=== PATIENT | male | born 1975 | race Caucasian/White ===

== ENCOUNTER 2019-01-15 09:27 | Inpatient (IN) | payer OTHER ==
[~2019-01-15] VITALS: Ht 170.2 cm; Wt 122.5 kg
[2019-01-15 12:39] VITALS: BP 141/96; PULSE 94; RESP 18
[2019-01-15 12:45] VITALS: Ht 170.2 cm; Wt 122.5 kg
--- NOTE | 2019-01-15 13:24 | HP ---
Date/Time of Note Date/Time of Note DATE: 01/15/19 TIME: 13:11 Assessment/Plan VTE Prophylaxis Pharmacological prophylaxis: LMWH Assessment/Plan Assessment/Plan 43 yo obese man, smoker, presents with likely pancreatitis #Acute abdominal pain #Nausea and vomiting - CT shows inflammatory changes of pancreas. Lipase 174, amylase 36. - Differential includes early pancreatitis, peptic ulcer, acute gastroenteritis, ileus. - For suspected pancreatitis will make NPO and aggressive IV fluids; repeat lipase in AM. EtOH negative, will check triglycerides and RUQ US (CT didn't report on gallbladder) - Protonix BID - Tylenol and norco prn pain. #Smoker - Encouraged cessation - Offered nicotine patch, patient refused. DVT: LMWH GI: PPI HPI/ROS Admit Date/Time Admit Date/Time Jan 15, 2019 at 12:20 Hx of Present Illness Mr. Campbell is a pleasant obese man transferred here from [facility] for pancreatitis. He was in his usual state of health until Sunday evening. He had eaten 2 [id number] and lots of [employer] garlic bread. Soon afterwards he developed LUQ cramping abdominal pain "like when you step out of the shower and are hit with cold air". This was associated with fever and chills. He took ibuprofen 500mg, Nyquil, Zantac, pepto bismol, then a bottle of Pedialyte. Soon after drinking the Pedialyte he vomited 4 times, nonbloody nonbilious; just the pedialyte. Then he presented to the ED. Of note, he drinks heavily on the weekends and drank a 12 pack of beer on S unday. He said he felt fine after this and was asymptomatic until Sunday night. He reports constipation, last BM 2 days ago. Early Sunday morning he presented to the [place] ED. He was hypertensive to 187/96, otherwise vitals unremarkable. Labs were notable for WBC 18.4, Hgb 17.2, platelets 130. Na 126, K 3.3, glucose 291. Lipase was 174, amylase 36. EtOH negative. CT was done showing fatty hepatomegaly and inflammatory change around the pancreas. He was bolused fluids and transfered here. ROS He denies weight loss, anorexia, night sweats, headache, vision changes, dysphagia, dysarthria, sore throat, diarrhea, chest pain/pressure/palpitations, cough, dysuria, hematuria, melena, hematochezia, hematemesis. PMH/Family/Social Past Medical History Denies Coded Allergies: No Known Allergy (Unverified , 01/15/19) Past Surgical History Appendectomy as a child Social History Alcohol Use: heavy (Drinks 12 pack of beer every weekend) Smoking Status: Current every day smoker (1.5 packs per day) Drug Use: none Exam/Review of Systems Vital Signs Vitals Vital Signs Date Temp Pulse Resp B/P (MAP) Pulse Ox O2 O2 Flow FiO2 Time Delivery Rate 01/15/19 97.8 94 18 141/96 96 Room Air 12:39 (111) Exam Exam Gen: Obese man lying in bed uncomfortable appearing. Eyes: PERRL, no icterus HEENT: Moist mucous membranes, clear oropharynx Neck: Obese, no lymphadenopathy Card: Regular rate and rhythm, no murmurs Pulm: Clear to auscultation bilaterally. Abd: Diffusely tender to deep palpation, most at LUQ. Obese, soft. No rebound tenderness. No palpable hepatomegaly. Too tender to palpate spleen. Negative Reece's sign. Ext: No cyanosis/clubbing/edema Skin: warm dry well perfused SHILPA BAUER MD Jan 15, 2019 13:22
[2019-01-15] MEDS ORDERED: ACETAMINOPHEN 325 MG TAB PO PRN (13:30)
[2019-01-15] MEDS ORDERED: NACL 0.9% 3 ML SYG IV SCH (13:30)
[2019-01-15] MEDS ORDERED: ONDANSETRON 4 MG INJ IV PRN (13:30)
[2019-01-15] MEDS: HYDROCODONE/APAP (5/325) TAB PO PRN ×2 (13:49→20:01)
[2019-01-15] MEDS: SENNA TAB PO SCH ×2 (15:09→20:01)
[2019-01-15] MEDS: NS + KCL 20 MEQ 1,000 ML IV SCH ×2 (15:09→21:10)
[2019-01-15 20:00] VITALS: BP 129/89; PULSE 99; RESP 19
[2019-01-16] MEDS: NS + KCL 20 MEQ 1,000 ML IV SCH ×3 (00:50→09:02)
[2019-01-16] MEDS: HYDROCODONE/APAP (5/325) TAB PO PRN ×4 (01:54→21:08)
[2019-01-16 02:00] VITALS: BP 160/86; PULSE 90; RESP 18
[2019-01-16] MEDS: PANTOPRAZOLE 40 MG INJ IV SCH (05:59)
[2019-01-16 06:40] VITALS: BP 157/95; PULSE 88
[2019-01-16 07:53] VITALS: BP 159/97; PULSE 91; RESP 18
[2019-01-16] MEDS: SENNA TAB PO SCH ×2 (08:26→21:08)
[2019-01-16] MEDS: ENOXAPARIN 40 MG/0.4 ML SYG SC SCH (08:34)
--- NOTE | 2019-01-16 12:55 | PN ---
Date/Time of Note Date/Time of Note DATE: 01/16/19 TIME: 12:51 Assessment/Plan VTE Prophylaxis Risk score (from Nsg)>0 risk: 1 SCD applied (from Nsg): Yes Pharmacological prophylaxis: LMWH Lines/Catheters IV Catheter Type (from Nrsg): Peripheral IV Urinary Cath still in place: No Assessment/Plan Assessment/Plan 43 yo obese man, smoker, presents with pancreatitis #Acute abdominal pain #Nausea and vomiting - CT shows inflammatory changes of pancreas. Lipase 174 -> 492 - Differential includes early pancreatitis, peptic ulcer, acute gastroenteritis, ileus. - Abdominal pain improving, patient hungry. Will start clear liquids. - Etiology of pancreatitis may be alcohol binge. No gallstones on US or CT, triglycerides only slightly elevated. - Protonix BID - Tylenol and norco prn pain. #Smoker - Encouraged cessation - Offered nicotine patch, patient refused. DVT: LMWH GI: PPI Result Diagram: 01/16/19 0459 01/16/19 0458 Subjective 24 Hr Interval Summary Free Text/Dictation Patient reports abdominal pain improving. Nausea has resolved. Feeling hungry. Ambulating to bathroom. Exam/Review of Systems Exam Vitals Vital Signs Date Temp Pulse Resp B/P (MAP) Pulse Ox O2 O2 Flow FiO2 Time Delivery Rate 01/16/19 98.9 91 18 159/97 94 Room Air 07:53 (117) Intake and Output 01/15/19 01/15/19 01/16/19 1515:00 23:00 07:00 IntakeIntake Total 450 ml 1150 ml OutputOutput Total 500 ml BalanceBalance 450 ml 650 ml Exam Gen: Obese man lying in bed well appearing Eyes: PERRL, no icterus HEENT: Moist mucous membranes, clear oropharynx Neck: Obese, no lymphadenopathy Card: Regular rate and rhythm, no murmurs Pulm: Clear to auscultation bilaterally. Abd: Diffusely tender to deep palpation, most at LUQ. Obese, soft. No rebound tenderness. No palpable hepatomegaly. Too tender to palpate spleen. Negative Reece's sign. Ext: No cyanosis/clubbing/edema Skin: warm dry well perfused Results Results 24hrs Laboratory Tests Test 01/16/19 04:58 01/16/19 04:59 Sodium Level 134 L Potassium Level 4.7 Chloride Level 98 Carbon Dioxide Level 28 Anion Gap 8 Blood Urea Nitrogen 9 Creatinine 0.67 Est Glomerular Filtrat Rate mL/min > 60 Glucose Level 206 Hemoglobin A1c 9.4 H Calcium Level 8.6 Phosphorus Level 3.0 Magnesium Level 1.6 L Total Bilirubin 3.8 H Direct Bilirubin 1.70 H Indirect Bilirubin 2.1 H Aspartate Amino Transf (AST/SGOT) 105 H Alanine Aminotransferase (ALT/SGPT) 83 H Alkaline Phosphatase 162 H Total Protein 7.7 Albumin 3.5 Globulin 4.20 H Albumin/Globulin Ratio 0.83 Triglycerides Level 242 H Cholesterol Level 124 LDL Cholesterol, Calculated 54 HDL Cholesterol 22 L Cholesterol/HDL Ratio 5.6 Thyroid Stimulating Hormone (TSH) 0.320 L White Blood Count 13.0 H Red Blood Count 4.97 Hemoglobin 14.8 Hematocrit 44.0 Mean Corpuscular Volume 88.5 Mean Corpuscular Hemoglobin 29.8 Mean Corpuscular Hemoglobin Concent 33.6 Red Cell Distribution Width 13.4 Platelet Count 92 L Mean Platelet Volume 11.7 H Immature Granulocytes % 0.800 H Neutrophils % 75.1 Lymphocytes % 13.5 L Monocytes % 10.0 Eosinophils % 0.2 Basophils % 0.4 Nucleated Red Blood Cells % 0.0 Immature Granulocytes # 0.110 H Neutrophils # 9.7 H Lymphocytes # 1.8 Monocytes # 1.3 H Eosinophils # 0.0 Basophils # 0.1 Nucleated Red Blood Cells # 0.0 Lipase 492 H Medications Medication Current Medications Potassium Chloride/Sodium Chloride 1,000 ml @ 150 mls/hr Q6H40M IV Last administered on 01/16/19at 09:02; Admin Dose 150 MLS/HR; Start 01/15/19 at 14:30 IV Flush (NS 3 ml) 3 ml PER PROTOCOL IV ; Start 01/15/19 at 13:30 Ondansetron HCl (Zofran Inj) 4 mg Q6H PRN IV NAUSEA/VOMITING; Start 01/15/19 at 13:30 Acetaminophen (Tylenol Tab) 650 mg Q6H PRN PO .PAIN 1-3 OR TEMP; Start 01/15/19 at 13:30 Acetaminophen/ Hydrocodone Bitart ([place] (5/325)) 1 tab Q6H PRN PO SEVERE PAIN LEVEL 7-10 Last administered on 01/16/19at 08:26; Admin Dose 1 TAB; Start 01/15/19 at 13:30 Pantoprazole (Protonix Iv) 40 mg DAILY@06 IV Last administered on 01/16/19at 05:59; Admin Dose 40 MG; Start 01/16/19 at 06:00 Enoxaparin Sodium (Lovenox) 40 mg DAILY SC Last administered on 01/16/19at 08:34; Admin Dose 40 MG; Start 01/16/19 at 09:00 Senna (Senokot) 2 tab BID PO Last administered on 01/16/19at 08:26; Admin Dose 2 TAB; Start 01/15/19 at 13:30 SHILPA BAUER MD Jan 16, 2019 12:55
[2019-01-16] MEDS: SOD CHLORIDE 0.9% 1,000 ML IV SCH ×2 (13:03→21:09)
[2019-01-16 14:30] VITALS: BP 146/91; PULSE 90; RESP 18
[2019-01-16 20:00] VITALS: BP 156/106; PULSE 109; RESP 18
[2019-01-17 02:00] VITALS: BP 134/90; PULSE 106; RESP 19
[2019-01-17] MEDS: HYDROmorphONE 0.5 MG/0.5 ML SYG IV PRN ×2 (02:01→09:06)
[2019-01-17] MEDS: HYDROCODONE/APAP (5/325) TAB PO PRN ×3 (02:01→21:29)
[2019-01-17] MEDS ORDERED: GLUCOSE GEL 15 GRAM TUBE PO PRN ×2 (05:00)
[2019-01-17] MEDS ORDERED: DEXTROSE 50% 50 ML SYRINGE IV PRN ×2 (05:00)
[2019-01-17] MEDS ORDERED: GLUCAGON 1 MG INJ IM PRN (05:00)
[2019-01-17] MEDS ORDERED: GLUCOSE GEL 15 GRAM TUBE BUCCAL PRN (05:00)
[2019-01-17] MEDS: SOD CHLORIDE 0.9% 1,000 ML IV SCH ×2 (06:24→13:00)
[2019-01-17] MEDS: PANTOPRAZOLE 40 MG INJ IV SCH (06:25)
[2019-01-17 07:29] VITALS: BP 135/92; PULSE 101; RESP 18
[2019-01-17] MEDS: SENNA TAB PO SCH ×2 (08:18→21:28)
[2019-01-17] MEDS: INSULIN ASPART [NOVOLOG] 3 ML PEN SC SCH ×4 (08:20→21:00)
[2019-01-17] MEDS: ENOXAPARIN 40 MG/0.4 ML SYG SC SCH (09:00)
[2019-01-17] MEDS ORDERED: MAGNESIUM SULFATE 2 GM/50 ML 50 ML IVPB ONE (14:30)
[2019-01-17] MEDS ORDERED: POTASSIUM CHLORIDE 20 MEQ POWDER FOR ORAL SOLN PO ONE (14:30)
--- NOTE | 2019-01-17 14:32 | PN ---
Date/Time of Note Date/Time of Note DATE: 01/17/19 TIME: 14:29 Assessment/Plan VTE Prophylaxis Risk score (from Nsg)>0 risk: 3 SCD applied (from Ns): No SCD contraindicated: other (no) Pharmacological prophylaxis: LMWH Lines/Catheters IV Catheter Type (from Nrs): Peripheral IV Urinary Cath still in place: No Assessment/Plan Assessment/Plan 43 yo obese man, smoker, presents with pancreatitis #Acute abdominal pain #Nausea and vomiting - CT shows inflammatory changes of pancreas. Lipase 174 -> 492 - Differential includes early pancreatitis, peptic ulcer, acute gastroenteritis, ileus. - Full liquid diet, advance as tolerated. - Etiology of pancreatitis may be alcohol binge. No gallstones on US or CT, triglycerides only slightly elevated. - Protonix BID - Tylenol and norco prn pain. #Smoker - Encouraged cessation - Offered nicotine patch, patient refused. DVT: LMWH GI: PPI Result Diagram: 01/17/1933 01/17/19 0534 Subjective 24 Hr Interval Summary Free Text/Dictation No acute overnight events. Patient is tolerating clear liquids well. Ambulating without assistance. He does report constipation, last BM 4 days ago. Passing gas though. Exam/Review of Systems Exam Vitals Vital Signs Date Temp Pulse Resp B/P (MAP) Pulse Ox O2 O2 Flow FiO2 Time Delivery Rate 01/17/19 98.7 101 18 135/92 97 07:29 (106) 01/17/19 Room Air 02:00 Intake and Output 01/16/19 01/16/19 01/17/19 1515:00 23:00 07:00 IntakeIntake Total 1600 ml 600 ml 360 ml OutputOutput Total 100 ml 300 ml BalanceBalance 1500 ml 600 ml 60 ml Exam Gen: Obese man sitting up in bed well appearing. Eyes: PERRL, no icterus HEENT: Moist mucous membranes, clear oropharynx Neck: Obese, no lymphadenopathy Card: Regular rate and rhythm, no murmurs Pulm: Clear to auscultation bilaterally. Abd: Mildly tender to palpation. Obese, soft. No rebound tenderness. No palpable hepatomegaly. Too tender to palpate spleen. Negative Reece's sign. Ext: No cyanosis/clubbing/edema Skin: warm dry well perfused Results Results 24hrs Laboratory Tests Test 01/17/19 05:33 01/17/19 05:34 01/17/19 08:15 01/17/19 12:54 White Blood Count 9.7 # Red Blood Count 4.49 L Hemoglobin 13.3 L Hematocrit 39.6 L Mean Corpuscular 88.2 Volume Mean Corpuscular 29.6 Hemoglobin Mean Corpuscular 33.6 Hemoglobin Concent Red Cell 13.4 Distribution Width Platelet Count 87 L Mean Platelet Volume 11.1 H Immature 0.800 H Granulocytes % Neutrophils % 67.8 Lymphocytes % 18.0 Monocytes % 12.4 H Eosinophils % 0.6 Basophils % 0.4 Nucleated Red Blood 0.0 Cells % Immature 0.080 H Granulocytes # Neutrophils # 6.6 Lymphocytes # 1.7 Monocytes # 1.2 H Eosinophils # 0.1 Basophils # 0.0 Nucleated Red Blood 0.0 Cells # Sodium Level 133 L Potassium Level 3.4 L Chloride Level 98 Carbon Dioxide Level 28 Anion Gap 7 Blood Urea Nitrogen 7 Creatinine 0.60 L Est Glomerular > 60 Filtrat Rate mL/min Glucose Level 187 Calcium Level 8.0 L Phosphorus Level 2.4 L Magnesium Level 1.8 Bedside Glucose 181 151 Medications Medication Current Medications IV Flush (NS 3 ml) 3 ml PER PROTOCOL IV ; Start 01/15/19 at 13:30 Ondansetron HCl (Zofran Inj) 4 mg Q6H PRN IV NAUSEA/VOMITING; Start 01/15/19 at 13:30 Acetaminophen (Tylenol Tab) 650 mg Q6H PRN PO .PAIN 1-3 OR TEMP; Start 01/15/19 at 13:30 Pantoprazole (Protonix Iv) 40 mg DAILY@06 IV Last administered on 01/17/19at 06:25; Admin Dose 40 MG; Start 01/16/19 at 06:00 Enoxaparin Sodium (Lovenox) 40 mg DAILY SC Last administered on 01/16/19at 08: 34; Admin Dose 40 MG; Start 01/16/19 at 09:00; Status Hold Senna (Senokot) 2 tab BID PO Last administered on 01/17/19at 08:18; Admin Dose 2 TAB; Start 01/15/19 at 13:30 Sodium Chloride 1,000 ml @ 125 mls/hr Q8H IV Last administered on 01/17/19at 06:24; Admin Dose 125 MLS/HR; Start 01/16/19 at 13:00 Acetaminophen/ Hydrocodone Bitart ([place] (5/325)) 1 tab Q4H PRN PO SEVERE PAIN 7-10/10 Last administered on 01/17/19at 06:25; Admin Dose 1 TAB; Start 01/17/19 at 01:37 Hydromorphone HCl (Dilaudid) 0.5 mg Q4H PRN IV BREAKTHROUGH PAIN Last administered on 01/17/19at 09:06; Admin Dose 0.5 MG; Start 01/17/19 at 01:38 Diagnostic Test (Pha) (Accu-Chek) 1 ea 02 XX ; Start 01/18/19 at 02:00 Insulin Aspart (Novolog Insulin Pen) NOVOLOG *MILD* ALGORITHM WITH MEALS BEDTIME SC Last administered on 01/17/19at 12:58; Admin Dose 1 UNIT; Start 01/17/19 at 08:00 Miscellaneous Information 1 ea NOTE XX ; Start 01/17/19 at 05:00 Glucose (Glutose) 15 gm Q15M PRN PO DECREASED GLUCOSE; Start 01/17/19 at 05:00 Glucose (Glutose) 22.5 gm Q15M PRN PO DECREASED GLUCOSE; Start 01/17/19 at 05:00 Dextrose (D50w Syringe) 25 ml Q15M PRN IV DECREASED GLUCOSE; Start 01/17/19 at 05:00 Dextrose (D50w Syringe) 50 ml Q15M PRN IV DECREASED GLUCOSE; Start 01/17/19 at 05:00 Glucagon (Glucagen) 1 mg Q15M PRN IM DECREASED GLUCOSE; Start 01/17/19 at 05:00 Glucose (Glutose) 15 gm Q15M PRN BUCCAL DECREASED GLUCOSE; Start 01/17/19 at 05:00 SHILPA BAUER MD Jan 17, 2019 14:32
[2019-01-17 14:45] VITALS: BP 143/94; PULSE 105; RESP 18
[2019-01-17] MEDS: POLYETHYLENE GLYCOL 17 GM PACKET PO SCH (14:53)
[2019-01-17 20:00] VITALS: BP 141/90; PULSE 85; RESP 17
[2019-01-18] MEDS: HYDROCODONE/APAP (5/325) TAB PO PRN (01:27)
[2019-01-18] MEDS ORDERED: ACCU-CHEK XX SCH (02:00)
[2019-01-18 02:08] VITALS: BP 145/86; PULSE 89; RESP 18
[2019-01-18] MEDS ORDERED: PANTOPRAZOLE (EC) 40 MG TAB PO SCH (06:00)
[2019-01-18 07:45] VITALS: BP 150/90; PULSE 89; RESP 18
[2019-01-18] MEDS: INSULIN ASPART [NOVOLOG] 3 ML PEN SC SCH ×2 (08:12→12:00)
[2019-01-18] MEDS: POLYETHYLENE GLYCOL 17 GM PACKET PO SCH (08:12)
[2019-01-18] MEDS: SENNA TAB PO SCH (08:13)
[2019-01-18] MEDS ORDERED: METF-849 PO (12:49)
--- NOTE | 2019-01-18 12:59 | PDOCDIS ---
Discharge Instructions DIAGNOSIS Discharge Diagnosis Acute pancreatitis Diabetic mellitus CONDITION [id number] Patient Condition: [id number] Good HOME CARE INSTRUCTIONS: [id number] Special Diet: [id number] Carbohydrate controlled ACTIVITY: [id number] Activity Restrictions: [id number] No Restrictions FOLLOW UP/APPOINTMENTS Follow-up Plan 1. Take metformin twice daily for diabetes. If you develop bloating and diarrhea, decrease it to once daily. If symptoms persist, stop taking it. 2. Avoid alcohol for at least two more weeks. In the future, do not drink more than 4 alcoholic drinks in one day. No more than 14 drinks per week. An alco holic drink is 12 oz of beer, 5oz of wine, or 1.5 oz (a shot) of liquor. 3. Limit carbohydrates as much as possible. Diabetes is a chronic progressive disease that you will have for the rest of your life but can be controlled with proper diet and exercise. 4. At your height, your ideal body weight is 145 lbs. At 190 lbs you will no longer be obese. At 160 lbs you will no longer be overweight. Losing weight will reduce your risk of back and knee arthritis as well as your risk of hypertension and diabetes. 5. You should establish a primary care doctor and make regular appointments to watch your blood pressure and blood sugars. SHILPA BAUER MD Jan 18, 2019 12:59
--- NOTE | 2019-01-18 15:58 | DS ---
Date/Time of Note Date/Time of Note DATE: 01/18/19 TIME: 15:55 Discharge Summary Admission/Discharge Info Admit Date/Time Jan 15, 2019 at 12:20 Discharge Date/Time Jan 18, 2019 at 14:26 Discharge Diagnosis Acute pancreatitis Diabetic mellitus Patient Condition: Good Consults None Procedures None Hx of Present Illness Mr. Campbell is a pleasant obese man transferred here from [facility] for pancreatitis. He was in his usual state of health until Sunday evening. He had eaten 2 [id number] and lots of [employer] garlic bread. Soon afterwards he developed LUQ cramping abdominal pain "like when you step out of the shower and are hit with cold air". This was associated with fever and chills. He took ibuprofen 500mg, Nyquil, Zantac, pepto bismol, then a bottle of Pedialyte. Soon after drinking the Pedialyte he vomited 4 times, nonbloody nonbilious; just the pedialyte. Then he presented to the ED. Of note, he drinks heavily on the weekends and drank a 12 pack of beer on Sunday. He said he felt fine after this and was asymptomatic until Sunday night. He reports constipation, last BM 2 days ago. Early Sunday morning he presented to the [place] ED. He was hypertensive to 187/96, otherwise vitals unremarkable. Labs were notable for WBC 18.4, Hgb 17.2, platelets 130. Na 126, K 3.3, glucose 291. Lipase was 174, amylase 36. EtOH negative. CT was done showing fatty hepatomegaly and inflammatory change around the pancreas. He was bolused fluids and transfered here. Hospital Course Repeat lipase was 492, confirming the diagnosis of early pancreatitis. Gallbladder US and CT abdomen negative for cholelithiaisis; TG normal; so alcohol binge is the likely cause. Diet was started and gradually progressed to regular. He tolerated this well, abdominal pain resolved, having bowel movements. He was also noted to have uncontrolled diabetes with HgbA1C 9.4. Milagro the religious educator spoke to him. He only required 2-3 units sliding scale insulin per day. Will discharge on metformin. Home Meds Active Scripts Metformin* (Glucophage*) 500 Mg Tab, 500 MG PO WITH BREAKFAST DINNE, #60 TAB Prov:SHILPA BAUER MD 01/18/19 Follow-up Plan 1. Take metformin twice daily for diabetes. If you develop bloating and diarrhea, decrease it to once daily. If symptoms persist, stop taking it. 2. Avoid alcohol for at least two more weeks. In the future, do not drink more than 4 alcoholic drinks in one day. No more than 14 drinks per week. An alcoholic drink is 12 oz of beer, 5oz of wine, or 1.5 oz (a shot) of liquor. 3. Limit carbohydrates as much as possible. Diabetes is a chronic progressive disease that you will have for the rest of your life but can be controlled with proper diet and exercise. 4. At your height, your ideal body weight is 145 lbs. At 190 lbs you will no longer be obese. At 160 lbs you will no longer be overweight. Losing weight will reduce your risk of back and knee arthritis as well as your risk of hypertension and diabetes. 5. You should establish a primary care doctor and make regular appointments to watch your blood pressure and blood sugars. Primary Care Provider Not On Staff Doctor Time spent on discharge: > 30 minutes Pending Labs Laboratory Tests Test 01/17/19 17:27 01/17/19 21:26 01/18/19 08:09 01/18/19 09:20 Bedside 214 156 142 Glucose mg/dL (70-220) mg/dL (70-220) mg/dL (70-220) White Blood 7.4 Count 10^3/ul (4.8-1 0.8) Red Blood 4.23 Count 10^6/ul (4.70- 6.10) Hemoglobin 12.6 g/dl (14.0-18. 0) Hematocrit 37.7 % (42.0-52.0) Mean 89.1 Corpuscular fl (82.0-101.0 Volume ) Mean 29.8 Corpuscular pg (29.0-33.0) Hemoglobin Mean 33.4 Corpuscular g/dl (32.0-37. Hemoglobin Conc 0) ent Red Cell 14.0 Distribution % (11.5-14.5) Width Platelet Count 114 10^3/UL (140-4 15) Mean Platelet 10.5 Volume fl (7.4-10.4) Immature 1.200 Granulocytes % % (0.001-0.429 ) Neutrophils % 61.3 % (39.0-77.0) Lymphocytes % 20.1 % (15.0-51.0) Monocytes % 15.1 % (0.0-11.0) Eosinophils % 1.8 % (0.0-7.0) Basophils % 0.5 % (0.0-2.0) Nucleated Red 0.0 Blood Cells % /100WBC (0.0-0 .0) Immature 0.090 Granulocytes # 10^3/ul (0.0-0 .031) Neutrophils # 4.5 10^3/ul (1.6-7 .5) Lymphocytes # 1.5 10^3/ul (0.8-2 .9) Monocytes # 1.1 10^3/ul (0.3-0 .9) Eosinophils # 0.1 10^3/ul (0.0-0 .5) Basophils # 0.0 10^3/ul (0.0-0 .1) Nucleated Red 0.0 Blood Cells # 10^3/ul (0.0-0 .0) Sodium Level 137 mmol/L (135-14 4) Potassium 3.4 Level mmol/L (3.5-5. 1) Chloride Level 102 mmol/L (97-110 ) Carbon Dioxide 25 Level mmol/L (21-31) Anion Gap 10 (5-13) Blood Urea 8 mg/dl (7-20) Nitrogen Creatinine 0.48 mg/dl (0.61-1. 24) Est Glomerular > 60 Filtrat mL/min (>60) Rate mL/min Glucose Level 194 mg/dl (70-220) Calcium Level 8.4 mg/dl (8.4-10. 2) Test 01/18/19 12:55 Bedside 139 Glucose mg/dL (70-220) SHILPA BAUER MD Jan 18, 2019 15:58
== END 2019-01-18 14:26 | disposition home or self-care (01) | DRG 439 ==
LOC: 2NE 12:20
PROVIDERS: ADMIT Internal Medicine; ATTEND Internal Medicine
DX: K85.90 Acute pancreatitis without necrosis or infection, unspecified (principal); Z68.41 Body mass index [BMI] 40.0-44.9, adult; E66.9 Obesity, unspecified; Z72.0 Tobacco use; E11.9 Type 2 diabetes mellitus without complications
CPT/HCPCS: 76705; 80048; 80053; 80061; 82962; 83036; 83690; 83735; 84100; 84443; 85025; 87081; C9113; J1170; J1650; J1815; J3475; J3480; J7030